=== PATIENT | female | born 1995 | race Two or more races ===

== ENCOUNTER 2020-07-15 13:20 | Emergency (ER) | payer MEDICAID, OTHER ==
[~2020-07-15] VITALS: Ht 165.1 cm; Wt 77.1 kg
[2020-07-15 13:25] VITALS: BP 140/87
== END 2020-07-15 14:12 | disposition left against medical advice (07) ==
LOC: ER 13:20
DX: R10.2 Pelvic and perineal pain (principal); Z53.21 Procedure and treatment not carried out due to patient leaving prior to being seen by health care provider